=== PATIENT | male | born 1935 | race Two or more races ===

== ENCOUNTER → 2016-08-31 | Outpatient (CLI) | payer OTHER, MEDICAID ==
--- NOTE | 2016-08-31 16:56 | DX ---
Chest, PA and Lateral History: Chest pain, fall. Trauma to back and posterior ribs. Comparison: July 19, 2016 Findings: There is a stable thoracic kyphosis with a new mild T5 superior endplate compression deform ity. There is chronic degenerative disk disease with retrolisthesis at L2-L3. No obvious acute rib fr acture is identified. There is no pneumothorax, pleural effusion, pulmonary contusion or mediastinal widening. There is sta ble chronic atherosclerotic calcification of the aortic arch and normal sized abdominal aorta. 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 There is a stable large retrocardiac hiatal hernia. Impression: New T5 compression.
--- NOTE | 2016-08-31 17:11 | DX ---
Thoracic spine, three views History: Pain, fall Comparison: Chest x-ray July 19, 2016 Findings: There is a chronic kyphosis associated with a new T5 mild compression. There is no obvious paraspinal stripe widening. Thoracic disk spaces maintain normal height. Impression: T5 compression..
== END ==
LOC: BMCIMAGING 16:06
PROVIDERS: ATTEND Internal Medicine
DX: S22.050A Wedge compression fracture of T5-T6 vertebra, initial encounter for closed fracture (principal)

== ENCOUNTER 2016-12-05 11:55 | Day surgery (SDC) | payer OTHER, MEDICAID ==
[2016-12-05] MEDS ORDERED: LIDOCAINE 1% 2 ML INJ ONE (12:38)
[2016-12-05] MEDS ORDERED: LR 1,000 ML IV ONE (12:48)
[2016-12-05] MEDS ORDERED: LIDOCAINE 1% 5 ML SDV ID PRN (12:48)
[2016-12-05] MEDS ORDERED: fentaNYL 100 MCG/2 ML INJ ONE (13:55)
[2016-12-05] MEDS ORDERED: MIDAZOLAM 2 MG/2 ML VIAL ONE (13:55)
[2016-12-05] MEDS ORDERED: PROPOFOL 200 MG/20 ML VIAL ONE (13:56)
--- NOTE | 2016-12-05 14:49 | GPN ---
[f rep st] PROCEDURE NOTE INDICATIONS: The patient is an 81-year-old male with history of colon polyps presents for vigilant screening. DESCRIPTION OF PROCEDURE: The patient placed in lithotomy position. Received IV general anesthesia . The video colonoscope was introduced through the anus and rectum, up to the left colon, across th e transverse colon, down the right colon to the cecum. Findings as follows: 1. Normal colonoscopic exam. 2. No polyps, tumors, or lesions noted. 3. Ileocecal valve was identified and photographed. At this point, scope was removed. The patient tolerated the procedure well and was returned to the recovery room in stable condition. RECOMMENDATIONS: The patient can have his next colonoscopy in 5 years time of age-appropriate. /[id number]/MODL
== END 2016-12-05 15:24 | disposition home or self-care (01) ==
LOC: FSGY 11:55
PROVIDERS: ATTEND Internal Medicine Gastroenterology
PROC: 0DJD8ZZ Inspection of Lower Intestinal Tract, Via Natural or Artificial Opening Endoscopic (ICD-10-PCS; principal; 2016-12-05 13:45)
DX: Z86.010 Personal history of colon polyps (principal); E11.9 Type 2 diabetes mellitus without complications; I10 Essential (primary) hypertension; I25.10 Atherosclerotic heart disease of native coronary artery without angina pectoris; E78.5 Hyperlipidemia, unspecified; Z95.5 Presence of coronary angioplasty implant and graft; Z85.46 Personal history of malignant neoplasm of prostate; Z82.49 Family history of ischemic heart disease and other diseases of the circulatory system
CPT/HCPCS: J2250; J2704; J3010

== ENCOUNTER 2018-06-09 09:30 | Emergency (ER) | payer OTHER, MEDICAID ==
--- NOTE | 2018-06-09 09:58 | EDPHY ---
H & P Stated Complaint: cough started 05/26, denies fevers. Time Seen by Provider: 06/09/18 09:43 HPI/ROS: This patient presents with a dry cough of 2 weeks duration that is increasing in frequency. This started on May 26 and he notes no other associated symptoms associated with it. He saw his primary care physician on June 02 who diagnosed him with the URI with cough at that time and prescribed Mucinex. He has been using Mucinex without relief. He explains the cough is worse at nighttime when lying flat compared to during the day. He still tolerating an hour long walk every day and denies any other associated symptoms including no significant dyspnea. Due to the increasing frequency of cough, his daughter brought him in by private vehicle for further evaluation. ROS constitutional: He denies any fatigue. No fevers. No chills. HEENT he had some coryza earlier in the illness that responded somewhat to [place] Pulmonary: No pleuritic pain. No hemoptysis or other sputum production. Cardiac: He denies any chest pain. No palpitations. No lower extremity edema. GI: No nausea vomiting or abdominal pain : No complaints Integumentary: No pallor or rash. No diaphoresis. Hematologic: No dark tarry stools 10 point review of symptoms is performed and otherwise negative with exception of pertinent positives and negatives listed in HPI and ROS Source: Patient Exam Limitations: No limitations - Medical/Surgical History PMH: Hypertension, hyperlipidemia, coronary disease with cardiac stents 20 years ago. He had no cardiac symptoms when he has significant coronary disease. His coronary disease was picked up on outpatient workup at [facility] Hx Diabetes: Yes Other PMH: htn, high cholestrol, - Social History Smoking Status: Never smoked Alcohol Use: None Drug Use: None - Physical Exam Exam: General Appearance: Alert, no distress. Eyes: Pupils equal and round no pallor or injection. ENT, Mouth: Mucous membranes moist. Respiratory: Rales bilateral bases. No wheezing. Cardiovascular: Regular rate and rhythm. No murmur gallop or rub. Appreciate no significant JVD. No lower extremity edema. Gastrointestinal: Abdomen is soft and nontender, no masses, bowel sounds normal. Neurological: GCS 15 Skin: Warm and dry, no rashes. Musculoskeletal: Neck is supple nontender. Extremities are symmetrical, full range of motion. 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 Sinus rhythm at 72 Intervals: Normal throughout [place]: Normal throughout ST segments: Normal with exception of minimal lateral ST depression Overall assessment sinus rhythm with minimal lateral ST depression Imaging Results: Imaging Impressions Chest X-Ray 06/09/18 09:44 Impression: No pneumonia or acute source for cough identified. Two view chest x-ray: No focal infiltrates appreciated. Imaging: I viewed and interpreted images myself ED Course/Re-evaluation: Patient is given Zithromax 500 mg p. O. He is instructed him he has no albuterol inhaler by our nurse A review of the patient's labs reveals a normal troponin, essentially normal electrolytes, CBC with mild leukocytosis with left shift. BNP is pending but do not appreciate significant clinical evidence of congestive heart failure. Discussion: Patient presents with findings consistent with bronchitis with ongoing cough with increasing frequency and leukocytosis on workup. EKG reveals no significant ischemic findings. His troponin is normal. He has no cardiac symptoms at this time and do not think he has acute myocardial ischemia. No pneumonia on chest x-ray. - Data Points Laboratory Results: 06/09/18 06/09/18 10:12 10:12 POC Sodium 144 mEq/L mEq/L (135-145) POC Potassium 3.2 mEq/L L mEq/L (3.3-5.0) POC Chloride 102.0 mEq/L mEq/L (97-110) POC Total CO2 26 mEq/L mEq/L (22-31) POC BUN 15 mg/dL mg/dL (7-23) POC Creatinine 1.3 mg/dL mg/dL (0.7-1.3) POC Glucose 136 mg/dL H mg/dL (70-100) POC Calcium 9.8 mg/dL mg/dL (8.5-10.4) POC Troponin I 0.00 ng/mL ng/mL (0.00-0.08) Point of Care Test Results: CBC CBC Collection Date 06/09/18 CBC Collection Time 10:08 WBC 12.5 RBC 5.07 HGB 15.5 HCT 45.9 PLT 191 Neut # 10.9 Neut 86.9 LYMPH # 0.7 LYMPH 5.8 Other WBC # 0.9 Other WBC 7.3 MCV 90.5 Chemistry 06/09/18 06/09/18 10:12 10:12 POC Sodium 144 mEq/L mEq/L (135-145) POC Potassium 3.2 mEq/L L mEq/L (3.3-5.0) POC Chloride 102.0 mEq/L mEq/L (97-110) POC Total CO2 26 mEq/L mEq/L (22-31) POC BUN 15 mg/dL mg/dL (7-23) POC Creatinine 1.3 mg/dL mg/dL (0.7-1.3) POC Glucose 136 mg/dL H mg/dL (70-100) POC Calcium 9.8 mg/dL mg/dL (8.5-10.4) POC Troponin I 0.00 ng/mL ng/mL (0.00-0.08) Departure - Departure Disposition: Home, Routine, Self-Care Clinical Impression: Acute bronchitis Qualifiers: Bronchitis organism: unspecified organism Qualified Code(s): J20.9 - Acute bronchitis, unspecified Condition: Good Instructions: Acute Bronchitis (ED) Additional Instructions: Diagnosis: Acute bronchitis Plan: Humidifier Albuterol inhaler for cough, wheeze or shortness of breath Zithromax antibiotic With follow up with primary care physician for recheck in 1 week. Return to the emergency department for any significant worsening despite the treatment plan Referrals: Aleyda Sanchez [Primary Care Provider] - As per Instructions
[2018-06-09] MEDS ORDERED: AZITHROMYCIN 250 MG TAB PO ONE (10:30)
[2018-06-09] MEDS ORDERED: ALBUTEROL INH PREPACK MDI TAKEHOME ONE (10:40)
[2018-06-09 11:02] VITALS: BP 148/87
--- NOTE | 2018-06-11 19:18 | CPEKG ---
Test Reason : OPEN Blood Pressure : / mmHG Vent. Rate : 072 BPM Atrial Rate : 072 BPM P-R Int : 172 ms QRS Dur : 093 ms QT Int : 385 ms P-R-T Axes : 039 040 044 degrees QTc Int : 422 ms Sinus rhythm Minimal ST depression, lateral leads Confirmed by Peng Thorne ([id number]) on 06/11/2018 7:17:56 PM Referred By: Confirmed By:Peng Thorne
== END 2018-06-09 11:05 | disposition home or self-care (01) ==
LOC: CED 09:30
DX: J20.9 Acute bronchitis, unspecified (principal); E78.5 Hyperlipidemia, unspecified; I10 Essential (primary) hypertension; I25.10 Atherosclerotic heart disease of native coronary artery without angina pectoris; Z95.5 Presence of coronary angioplasty implant and graft
CPT/HCPCS: 71046-PO; 80048-PO; 84484-PO